=== PATIENT | female | born 1945 | race Caucasian/White ===

== ENCOUNTER → 2016-08-21 | Outpatient (CLI) | payer MEDICARE ==
[~2016-08-21] MED LIST: LSNP10T PO
[2016-08-21 13:59] LABS: ANION GAP 14.2 MEQ/L (3-15)
== END ==
LOC: LAB 13:25
PROVIDERS: ATTEND Family Medicine
DX: Z51.81 Encounter for therapeutic drug level monitoring (principal)
CPT/HCPCS: 36415; 80048

== ENCOUNTER 2016-09-10 10:15 | Outpatient (RCR) | payer MEDICARE ==
--- NOTE | 2016-08-14 14:27 | PT/OT/ST INITIAL EVALUATION ---
Department of Health and Human Services Form Approved [facility] Care Financing Administration OMB No. [id number] PLAN OF CARE/ASSESSMENT FOR OUTPATIENT REHABILITATION (Complete for Initial Claims Only) 1. PATIENT'S NAME Junaid Capone 2. ACC # [id number] [id number] 4. PROVIDER NO. [id number] 5. TYPE: PT 6. PRIOR HOSPITALIZATION NA 7. PRIMARY DX Low back pain ICD-10 code M45.5 8. SECONDARY DX NA 9. ONSET DATE A gradual onset with no specific onset date provided. 10. REFERRAL DATE 08/07/2016 11. SOC. DATE 08/11/2016 12. TIME OF EVAL 09:[address] Sameer Land 13. CHARGES/UNITS Evaluation 47817 2 units [place] [address]18 therapeutic exercise 14. G CODES [id number] Goal [id number] 15. PRIOR LEVEL OF FUNCTION; PERTINENT HISTORY (Prior therapy results, reason for referral.) S: Prior to therapy the patient consented to today's evaluation and treatment. The patient is a 70-year-old female referred by to Dr. Sameer Land to address low back pain. The patient notes a gradual onset of low back discomfort per her report, which her primary complaint is being unable to straighten up or walk with an upright posture after she has been leaning forward for a period of time. She notes her discomfort is present along the upper portion of her low back. Prior level of function: The patient does enjoy gardening, as well as working out at the [employer] 3 days a week. The patient is retired. Current level of function: The patient notes that she has difficulty when carrying or walking as she finds herself leaning forward being unable to maintain upright posture. Therapy History: The patient has had physical therapy following a right shoulder surgery several years ago. Pain level: Current pain level is described as a 1/10 and is described as a discomfort or stiffness. Aggravating factors: It is aggravated by bending. Relieving factors: No relieving factors noted. Diagnostic testing: No diagnostic imaging has been completed at this time. Past medical history: Right knee pain, history of a total shoulder surgery several years ago. Otherwise unremarkable. Current medications: The patient did not provide any medications. Personal health rating: The patient's health rating is good. Activity level: She did not provide an activity level rating. Patient's Goal: The patient's goal for physical therapy is to get better. 16. INITIAL ASSESSMENT/SAFETY PRECAUTIONS/MEDICAL COMPLICATIONS (Level of function at start of care. Be specific, use objective measures, list problems.) O: APPEARANCE, OBSERVATION AND GAIT: She is a moderately overweight female. Observation of the patient's posture reveals decreased thoracic kyphosis, increased lumbar lordosis. The patient demonstrates increased lumbar extension when trying to assume upright versus utilization of parascapular musculature. The iliac crests are equal in height. She does have a right posterior trunk lean when moving from lumbar flexion to extension. PALPATION: Right lumbar and thoracic paraspinals are tight. Bilateral ridging in IT bands. SPECIAL TESTS: Negative straight leg raise test for increased low back pain or tension. She scores a 7/50 on the Modified Oswestry pain questionnaire. RANGE OF MOTION/FLEXIBILITY: Lumbar flexion, extension and side bending are functional with no specific limitations noted. She has bilateral hip flexor tightness bilateral, greatest on the left. Hamstring length is equal with no limitations bilaterally. STRENGTH: Right hip flexion 4/5 and painful, left 4+/5. Right hip abduction 3+/5, left 3+/5. Hip extension not assessed this date secondary to the patient injuring the right knee prior to session. Knee flexion, knee extension and ankle dorsiflexion are 5/5. Shoulder flexion bilaterally 4+/5, shoulder abduction bilaterally 4/5, shoulder internal rotation 4+/5 bilaterally, external rotation 4/5 bilaterally. MOBILITY: The patient has had low mobility with spring test of T11 through L2 normalized mobility at L3 through L5. TODAY'S TREATMENT: Today's treatment consisted of educating the patient on the findings of the evaluation and recommended treatment plan. The physical therapist initiated stretching the rhomboids, and strengthening of the proximal hip musculature with modifications made this date secondary to right knee pain from a recent injury. 17. INITIAL POC: (Specify procedures, modalities, short and terminal block assembler goals) A: The patient presents to physical therapy with complaints of low to mid back pain and discomfort, as well as an inability to maintain an upright posture. She has significant muscle imbalance between the left and right side in the lumbar paraspinals and significant proximal hip weakness as well as shoulder and scapular weakness. Mobility is decreased as well through the T10 through L2 segments. FUNCTIONAL LIMITATIONS: The patient scores a 7/50 on the Modified Oswestry pain questionnaire with G code [id number]. INFORMED CONSENT: The diagnosis, prognosis, treatment plan, risks and expected outcomes were discussed with this patient and she is agreeable to today's established plan of care. SHORT TERM GOALS X3 WEEKS: 1. The patient will report a complete resolution of low and mid back discomfort. 2. The patient will report independence and compliance with her home exercise program. 3. The patient will demonstrate the ability to ambulate with upright posture approximately 1000 feet due to improved strength in the upper and lower extremities. DIRECTOR RISK GOALS X4 WEEKS: 1. The patient will have normalized mobility from T10 through L2 to increase stiffness in the low back. 2. The patient will improve bilateral hip flexion and hip abduction strength to be a minimum of 5/5. 3. The patient will also improve her Modified Oswestry score at a minimum of 10% to demonstrate decreased functional limitations due to the pain and discomfort she has experienced. P: Plan to see this patient 3 times a week for 4 weeks to address low and mid back discomfort, impaired hip weakness, as well as decreased mobility throughout the low thoracic and lumbar spine. Treatment will include as needed to address pain and muscle tightness and ultrasound, E-stim and iontophoresis may be used, manual therapy techniques will include myofascial release, soft tissue and deep tissue mobilization, and joint mobilizations. Therapeutic exercise will emphasize improving bilateral hip flexor length, and progressive hip and back strengthening, as well as stabilization through the trunk. Neuromuscular reeducation and functional training will also be utilized. The patient was provided a home exercise program and this will be progressed as the patient tolerates. Thank you for the referral of this patient. 18. FREQUENCY 3 times per week 19. DURATION 4 weeks 20. FUNCTIONAL LEVEL (End of claim period) 21. PHYSICIAN SIGNATURE ? ON FILE OR ENTER HERE: 22. DATE: I certify the need for these services furnished under this plan of care and if for partial hospitalization. 23. CERTIFICATION FROM THROUGH [id number]
== END 2016-09-22 10:47 | disposition home or self-care (01) ==
LOC: PT 10:15
PROVIDERS: ATTEND Family Medicine
DX: M54.5 Low back pain (principal)
CPT/HCPCS: 97110; 97140; 97161; 97530; G0283; G8978; G8979; 97014